=== PATIENT | female | born 1955 | race Caucasian/White ===

== ENCOUNTER → 2022-10-17 08:19 | Outpatient (BNVA) | payer MEDICARE, SELFPAY | PROVIDERS: PCP Internal Medicine; Visit Provider Nurse Practitioner Family | DX: H53.9 Unspecified visual disturbance (principal); H55.00 Unspecified nystagmus; R51.9 Headache, unspecified | CPT/HCPCS: 99202 ==

== ENCOUNTER 2022-11-14 10:08 | Outpatient (REF) | payer MEDICARE, SELFPAY ==
--- NOTE | ~2022-11-14 | MR_ITS ---
EXAMINATION: MR ANGIOGRAPHY BRAIN WITHOUT CONTRAST; MR ANGIOGRAM NECK WITHOUT AND WITH CONTRAST. CLINICAL INFORMATION: 67-year-old with unspecified nystagmus, with self-reported decline in vision in the mornings. Pressure in head, hypertension, HLD. COMPARISON: None available. MRA BRAIN TECHNIQUE: 3-D eiip-pa-cegjgo MR angiography of the intracranial circulation was done with multiplanar reformatted reconstructions without IV contrast. FINDINGS: Anterior Circulation: Review of both the source images and the MIPS demonstrate flow-related enhancement within the intracranial ICAs bilaterally without significant focal stenosis or segmental occlusion. There are curvilinear foci of signal loss in the ophthalmic and cavernous segments of both ICAs, likely reflecting intravoxel dephasing, which is an artifact. The A1 and A2 segments are patent and normal in caliber. The M1 segments are patent and normal in caliber with a normal appearance to the MCA bifurcations and M2 branches. The anterior communicating artery is diminutive but otherwise unremarkable. The posterior communicating arteries are not clearly visualized. Posterior Circulation: The visualized intradural vertebral arteries are patent and normal in caliber with the left being dominant. The posterior inferior cerebellar arteries are visualized bilaterally. There is a short fenestration of the proximal basilar artery at the vertebrobasilar junction, which is an anatomic variant. Otherwise, the basilar artery is patent and normal in caliber with smooth contours. The superior cerebellar and posterior cerebral arteries are patent and normal in caliber. No aneurysms or high-flow vascular malformations are identified. MRI NECK TECHNIQUE: 2-D cqxd-yy-xgplyd MR angiography was performed followed by bolus enhanced 3-D bnsx-qz-naokge MR angiography utilizing the intravenous administration of 10 mL of Gadavist via power injector. FINDINGS: There is antegrade flow in both vertebral arteries, with the left being dominant. There is limited visualization of the thoracic aortic arch, with a three-vessel arch configuration noted, with normal caliber to the brachiocephalic vessels. The visualized subclavian arteries are normal in caliber. The vertebral artery origins are patent and normal in caliber bilaterally. Note that the vertebral arteries throughout the course of the neck are not optimally evaluated due to artifacts with some segments not being well visualized. Cannot exclude atherosclerotic disease and stenoses on the left at the V3 segment and on the right at the V1, V2 and V3 segments. If clinically warranted, this can be better evaluated with CT angiography. The common carotid arteries are smoothly contoured and normal in caliber bilaterally, with a normal appearance to the carotid bifurcations. The cervical left internal carotid artery shows moderate short-segment luminal narrowing at the mid cervical ICA. There is focal luminal irregularity in the mid cervical right ICA, which has a somewhat beaded appearance without significant focal stenosis, raising suspicion for possible fibrovascular dysplasia given its location and appearance. Otherwise the remainder of the right cervical ICA is smoothly contoured and normal in caliber. Both ECAs are patent. MR/MR angio neck wo/w con IMPRESSION: 1. No evidence for significant intracranial arterial stenosis or segmental occlusion. 2. No intracranial aneurysms or high flow vascular malformations. 3. Question of atherosclerotic disease and stenoses involving the V3 segments of the vertebral arteries bilaterally. If clinically warranted, this can be better evaluated with CT angiography. Cannot exclude fibromuscular dysplasia on the right. 4. Moderate short segment stenosis of the mid cervical left ICA. 5. Focal luminal irregularity in the mid cervical right ICA without significant focal stenosis, raising suspicion for possible fibrovascular dysplasia given its location in appearance. 6. Limited visualization of the thoracic aortic arch. 7. CT angiography recommended for further assessment.
--- NOTE | ~2022-11-14 | MR_ITS ---
EXAMINATION: MR ANGIOGRAPHY BRAIN WITHOUT CONTRAST; MR ANGIOGRAM NECK WITHOUT AND WITH CONTRAST. CLINICAL INFORMATION: 67-year-old with unspecified nystagmus, with self-reported decline in vision in the mornings. Pressure in head, hypertension, HLD. COMPARISON: None available. MRA BRAIN TECHNIQUE: 3-D bsky-zp-jvwrmu MR angiography of the intracranial circulation was done with multiplanar reformatted reconstructions without IV contrast. FINDINGS: Anterior Circulation: Review of both the source images and the MIPS demonstrate flow-related enhancement within the intracranial ICAs bilaterally without significant focal stenosis or segmental occlusion. There are curvilinear foci of signal loss in the ophthalmic and cavernous segments of both ICAs, likely reflecting intravoxel dephasing, which is an artifact. The A1 and A2 segments are patent and normal in caliber. The M1 segments are patent and normal in caliber with a normal appearance to the MCA bifurcations and M2 branches. The anterior communicating artery is diminutive but otherwise unremarkable. The posterior communicating arteries are not clearly visualized. Posterior Circulation: The visualized intradural vertebral arteries are patent and normal in caliber with the left being dominant. The posterior inferior cerebellar arteries are visualized bilaterally. There is a short fenestration of the proximal basilar artery at the vertebrobasilar junction, which is an anatomic variant. Otherwise, the basilar artery is patent and normal in caliber with smooth contours. The superior cerebellar and posterior cerebral arteries are patent and normal in caliber. No aneurysms or high-flow vascular malformations are identified. MRI NECK TECHNIQUE: 2-D arwx-ak-lhqmfu MR angiography was performed followed by bolus enhanced 3-D trkz-bz-sukgsy MR angiography utilizing the intravenous administration of 10 mL of Gadavist via power injector. FINDINGS: There is antegrade flow in both vertebral arteries, with the left being dominant. There is limited visualization of the thoracic aortic arch, with a three-vessel arch configuration noted, with normal caliber to the brachiocephalic vessels. The visualized subclavian arteries are normal in caliber. The vertebral artery origins are patent and normal in caliber bilaterally. Note that the vertebral arteries throughout the course of the neck are not optimally evaluated due to artifacts with some segments not being well visualized. Cannot exclude atherosclerotic disease and stenoses on the left at the V3 segment and on the right at the V1, V2 and V3 segments. If clinically warranted, this can be better evaluated with CT angiography. The common carotid arteries are smoothly contoured and normal in caliber bilaterally, with a normal appearance to the carotid bifurcations. The cervical left internal carotid artery shows moderate short-segment luminal narrowing at the mid cervical ICA. There is focal luminal irregularity in the mid cervical right ICA, which has a somewhat beaded appearance without significant focal stenosis, raising suspicion for possible fibrovascular dysplasia given its location and appearance. Otherwise the remainder of the right cervical ICA is smoothly contoured and normal in caliber. Both ECAs are patent. MR/MR angio head wo con IMPRESSION: 1. No evidence for significant intracranial arterial stenosis or segmental occlusion. 2. No intracranial aneurysms or high flow vascular malformations. 3. Question of atherosclerotic disease and stenoses involving the V3 segments of the vertebral arteries bilaterally. If clinically warranted, this can be better evaluated with CT angiography. Cannot exclude fibromuscular dysplasia on the right. 4. Moderate short segment stenosis of the mid cervical left ICA. 5. Focal luminal irregularity in the mid cervical right ICA without significant focal stenosis, raising suspicion for possible fibrovascular dysplasia given its location in appearance. 6. Limited visualization of the thoracic aortic arch. 7. CT angiography recommended for further assessment.
== END 2022-11-14 10:09 | disposition home or self-care (01) ==
LOC: HO.MRI 10:08
PROVIDERS: PCP Internal Medicine; Visit Provider Nurse Practitioner Family
DX: R51.9 Headache, unspecified (principal); H55.00 Unspecified nystagmus; H53.9 Unspecified visual disturbance; E78.5 Hyperlipidemia, unspecified; I10 Essential (primary) hypertension
CPT/HCPCS: 70544; 70549; A9585

== ENCOUNTER 2022-12-20 09:52 | Outpatient (REF) | payer MEDICARE, SELFPAY ==
[2022-12-20 10:56] LABS: Anion Gap 9 (12-20); Blood Urea Nitrogen 14 mg/dL (9-16); Calcium 9.8 mg/dL (8.4-10.2); Carbon Dioxide 32 mmol/L (22-29); Chloride 106 mmol/L (96-108); Estimated Glomerular Filt Rate > 60; Glucose Random 95 mg/dL (60-115); Sodium 143 mmol/L (135-145)
== END 2022-12-20 09:53 | disposition home or self-care (01) ==
LOC: HO.LAB 09:52
PROVIDERS: PCP Internal Medicine; Visit Provider Nurse Practitioner Family
DX: I10 Essential (primary) hypertension (principal)
CPT/HCPCS: 36415; 80048

== ENCOUNTER 2023-01-09 07:50 | Outpatient (REF) | payer MEDICARE, SELFPAY ==
--- NOTE | ~2023-01-09 | CT_ITS ---
EXAMINATION: CT angio head neck CLINICAL INFORMATION: Unspecified visual disturbance. Nystagmus. Self reported decline in vision in the morning. COMPARISON: None. TECHNIQUE: Public [employer] Worker images were obtained. A CT angiogram of the head and neck was performed in the arterial phase after the intravenous administration of 70 mL Omnipaque 350. Delayed postcontrast images of the head were also obtained. 3D images were processed on an independent workstation under concurrent supervision. Arterial stenoses are measured in accordance with NASCET criteria or similar method if applicable. This CT examination was performed using dose optimization techniques as appropriate, including one or more of the following: Automated exposure control, iterative reconstruction, and adjustment of technique factors (mA and/or kVp) according to patient size (this includes techniques or standardized protocols for targeted exams where dose is matched to indication/reason for exam). Fleischner Society criteria for the followup of incidental pulmonary nodules was implemented if appropriate. Total exam dose-length product 2368 mGy-cm FINDINGS: Head: Postcontrast images reveal no abnormal intracranial mass or enhancement. There is no intracranial mass effect or midline shift. Lateral and third ventricles are normal. No hydrocephalus. Finch-white matter differentiation is preserved and there is no evidence of acute territorial infarct. The calvarium and skull base are intact. Mastoid air cells and middle ear cavities are well aerated. No active paranasal sinus disease. CT angiogram neck: The aortic arch apex is normal. Origins of the major aortic branches are widely patent. Common carotid arteries and carotid bifurcations are normal. There is a beaded irregular contour involving an short segment of the right extracranial internal carotid artery best visualized on MIP image 56 of 102 series 10. Otherwise no focal stenosis of the vessel. The left extracranial internal carotid artery is normal. Cervical segments of the vertebral arteries are normal. CT angiogram head: Intracranial internal carotid arteries are normal. The intradural vertebral artery segments and basilar artery are normal. Anterior, middle, and posterior cerebral artery complexes are normal. No intracranial large vessel occlusion. No identifiable aneurysm or high flow vascular lesion. Other: Soft tissues of the neck including the thyroid gland are normal. No pathologically enlarged cervical lymph nodes. No mediastinal or axillary adenopathy is visualized within the cyrje-wb-yqoi of this examination. Lung apices are clear. No acute osseous finding. CT/CT angio head neck IMPRESSION: There is a beaded irregular contour involving a short segment of the right extracranial internal carotid artery suggesting the possibility of fibromuscular dysplasia. Otherwise normal CT angiogram of the head and neck. No intracranial large vessel occlusion. No evidence of acute territorial infarct or hemorrhage. No abnormal intracranial mass or enhancement.
[2023-01-09] MEDS: iohexoL 350 MG/ML 100 ML INFUS..BTL 70 ML IV (09:00)
== END 2023-01-09 07:51 | disposition home or self-care (01) ==
LOC: HO.CT 07:50
PROVIDERS: PCP Internal Medicine; Visit Provider Nurse Practitioner Family
DX: H53.9 Unspecified visual disturbance (principal); I10 Essential (primary) hypertension; E78.5 Hyperlipidemia, unspecified
CPT/HCPCS: 70496; 70498; Q9967

== ENCOUNTER 2023-04-03 14:06 | Outpatient (AMB) | payer MEDICARE, SELFPAY ==
--- NOTE | 2023-04-03 14:23 | A.OFFVIS_ITS ---
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 She had CT for vision changes. Pt states that when she wakes up she has blurry vision for multiple hours until the afternoon when her vision starts to clear up. This has been happening fr a few years now. Accompanied by: Self / Same As Patient Allergies meloxicam Allergy (Mild, Verified 04/03/23 14:30) Swelling codeine Allergy (Unknown, Verified 04/03/23 14:30) Unknown acetaminophen [From Percocet] Adverse Reaction (Unknown, Verified 04/03/23 14:3 0) Nausea and Vomiting oxycodone [From Percocet] Adverse Reaction (Unknown, Verified 04/03/23 14:30) Nausea and Vomiting HPI [employer]ELOPER/Sleep/Neuro Ref for FMD c/p CTA Head/Neck HPI Details Complex 68-year-old female presents for evaluation regarding carotid disease. She originally had a significant workup due to visual changes. She reports that during the daytime she has difficulty seeing and dry eyes using drops on a fairly frequent basis with no significant relief. Has no issues during nights and warnings. She has had a significant workup inclusive of CT angio of the carotids. She now presents to us for vascular evaluation as they had concerning CT scan findings. Of note she has bilateral visual changes. In addition upon discussion with her she does have occasional headaches but she has a daughter and granddaughter both with migraine headache issues. She now presents to us for vascular evaluation with CT angiogram. [facility] Surgical History History of knee replacement Hx of cataract surgery Hx of tonsillectomy Hx of tubal ligation Family History Mother Hypertension Myocardial infarction CHF (congestive heart failure) Father Colon cancer Hypertension Paternal Grandfather Lung cancer Sister Hypertension Daughter Hypertension Son Sleep apnea Social History Alcohol intake: current Alcohol intake frequency: a few times a month Alcohol type: wine Patient Tobacco Use Status: Former Tobacco user Quit Date: Over 40 years ago. Review of Systems Const All systems reviewed & are unremarkable except as noted in HPI and below Reports no additional complaints ENT Reports Normal hearing present Card Denies chest pain, Denies chest pain at rest, Denies chest pain with activity and Denies pedal edema Resp Denies cough GI Denies abdominal pain Musc Denies abnormal gait, Denies muscle cramps and Denies radiating pain into limb Skin/Breast Denies skin ulcer and Denies wounds Neuro Reports Normal hearing present and Denies abnormal gait Psych Reports no additional complaints Physical Exam Vital Signs: BMI result Body Mass Index 25.3 Const General: cooperative, healthy appearing and comfortable Orientation/consciousness: oriented to person, oriented to place and oriented to time HEENT Head: Yes normal to inspection Neck Neck: Yes normal visual inspection Carotids: no bruits Chest Chest palpation & inspection: normal inspection of the chest Resp Effort & Inspection: normal respiratory effort and able to speak in complete sentences Auscultation: clear to auscultation bilaterally, no crackles, no rales, no rhonchi and no wheezes Cardio Rate: regular rate Rhythm: regular rhythm Heart sounds: S1 normal heart sound present and S2 normal heart sound present Bruits: no carotid bruits Peripheral pulses: Peripheral pulses 2+ throughout GI Inspection: Yes normal to inspection Skin Wounds: no wounds Hair: normal Neuro General: oriented to person, oriented to place and oriented to time Cranial nerves: Yes CN's II-XII intact bilaterally and Yes Normal hearing present Cognition (Neuro): normal cognition Motor exam (neuro): 5/5 motor strength present throughout Extrem Other: venous exam: No significant superficial varicosities or spider telangiectasias, minimal edema General: No clubbing, No cyanosis and No edema Psych Appearance: grossly normal Mental Status: mental status grossly normal Speech and movement: Normal speech and movement present Results Reviewed Results Reviewed: CT angiogram of official results are concerning for questionable focal right carotid FMD. Assessment & Plan Assessment & Plan (1) Vision changes: Code(s): H53.9 - Unspecified visual disturbance Plan: In short patient has bilateral visual changes. I did personally review the CT scan findings and also rereviewed the imaging with Radiology. I do believe that this is a significant over read. It has mild stenotic disease and there is no evidence of FMD. This is not the source of her visual issues. These findings were discussed with the patient. Once again may require further neurologic workup in terms of headaches and possible migraine auras, although she does deny any significant migraines. From our perspective she has no significant vascular issues. She will follow up with us on an as-needed basis. I do wish the patient best of luck. Thank you for allowing us to participate in her care Coding Level of Care Code New Pt Level 4 (36628) Diagnoses Vision changes H53.9
[2023-04-03 14:24] VITALS: BMI 25.3
== END 2023-04-03 15:20 | disposition home or self-care (01) ==
PROVIDERS: PCP Internal Medicine; Visit Provider Surgery Vascular Surgery
DX: H53.9 Unspecified visual disturbance (principal)
CPT/HCPCS: 99203

== ENCOUNTER → 2023-04-03 14:06 | Outpatient (BNVA) | payer MEDICARE, SELFPAY | PROVIDERS: PCP Internal Medicine; Visit Provider Surgery Vascular Surgery | DX: H53.9 Unspecified visual disturbance (principal) | CPT/HCPCS: 99202 ==

== ENCOUNTER 2023-09-01 11:51 | Emergency (ER) | payer MEDICARE, SELFPAY ==
--- NOTE | ~2023-09-01 | CT_ITS ---
CT HEAD WITHOUT IV CONTRAST CT CERVICAL SPINE WITHOUT IV CONTRAST INDICATION: Fall with head strike. COMPARISON: CTA head and neck 01/09/2023. TECHNIQUE: Multidetector CT acquisitions of the head and cervical spine were obtained without IV contrast. Multiplanar reformats were acquired and utilized for image interpretation. This CT examination was performed using dose optimization techniques as appropriate, variously including the following: *Automated exposure control *Adjustment of mA and/or kV according to patient size (this includes techniques or standardized protocols for targeted exams where dose is matched to indication/reason for exam; i.e. extremities or head) *Use of iterative reconstruction technique FINDINGS: HEAD: There is no intracranial hemorrhage, hydrocephalus, extra-axial surface collection, midline shift, or other herniation pattern. Finch to white matter differentiation is diffusely maintained without evidence of an evolved acute territorial infarct. The basilar cisterns are preserved. No significant soft tissue abnormality. No acute osseous abnormality. The paranasal sinuses and the mastoid air cells are well aerated. CERVICAL SPINE: Degenerative anterior subluxation of C4 on C5 in the setting of advanced facet arthropathy on the left side at this level. Severe degenerative disc disease at C5-C6. There are no acute fractures and there are no acute subluxations. Craniocervical junction is intact. Hypertrophic degenerative changes involving the atlantodental interval. CT/CT cervical spine wo IV con IMPRESSION: - No acute intracranial abnormality. - No acute osseous abnormality within the cervical spine. There is multilevel cervical spondylosis.
--- NOTE | ~2023-09-01 | CT_ITS ---
CT HEAD WITHOUT IV CONTRAST CT CERVICAL SPINE WITHOUT IV CONTRAST INDICATION: Fall with head strike. COMPARISON: CTA head and neck 01/09/2023. TECHNIQUE: Multidetector CT acquisitions of the head and cervical spine were obtained without IV contrast. Multiplanar reformats were acquired and utilized for image interpretation. This CT examination was performed using dose optimization techniques as appropriate, variously including the following: *Automated exposure control *Adjustment of mA and/or kV according to patient size (this includes techniques or standardized protocols for targeted exams where dose is matched to indication/reason for exam; i.e. extremities or head) *Use of iterative reconstruction technique FINDINGS: HEAD: There is no intracranial hemorrhage, hydrocephalus, extra-axial surface collection, midline shift, or other herniation pattern. Finch to white matter differentiation is diffusely maintained without evidence of an evolved acute territorial infarct. The basilar cisterns are preserved. No significant soft tissue abnormality. No acute osseous abnormality. The paranasal sinuses and the mastoid air cells are well aerated. CERVICAL SPINE: Degenerative anterior subluxation of C4 on C5 in the setting of advanced facet arthropathy on the left side at this level. Severe degenerative disc disease at C5-C6. There are no acute fractures and there are no acute subluxations. Craniocervical junction is intact. Hypertrophic degenerative changes involving the atlantodental interval. CT/CT head/brain wo IV con IMPRESSION: - No acute intracranial abnormality. - No acute osseous abnormality within the cervical spine. There is multilevel cervical spondylosis.
[2023-09-01 12:04] VITALS: BP 161/77; PULSE 91; RESP 19; TEMP 36.6; O2SAT 98; BMI 25.7
--- NOTE | 2023-09-01 12:10 | ED.GENADULT ---
HPI - General Adult General Chief complaint: Dizziness Stated complaint: Fall yest due to dizziness Time Seen by Provider: 09/01/23 17:57 Source: patient Mode of arrival: ambulatory Limitations: no limitations History of Present Illness HPI narrative: Patient is a 68 year old assigned female at with a history of HTN presenting to the emergency department today with a headache after a fall. Patient states that yesterday while she was in the shower, she put her leg up to shave, got dizzy, and fell backwards, striking her head. Patient denies any loss of consciousness. Patient denies any current dizziness, lightheadedness, abdominal pain, nausea, vomiting, fever, chills, blurry vision, double vision, loss of vision, chest pain, difficulty breathing, shortness of breath, back pain, night sweats, pain with urination, increased urinary frequency, increased urinary urgency, blood in her urine or stool, syncope or a near syncopal episode, bowel incontinence, bladder incontinence, bowel retention, bladder retention, or any other complaints at this time. Onset (ago): day(s) (1) Severity: mild Severity scale (1-10): 2 Relieving factors: none Exacerbating factors: none Associated symptoms: denies other symptoms Treatments prior to arrival: none Related Data Home Medications Medication Instructions Recorded Confirmed calcium carbonate 500 mg-vitamin 1 tab PO DAILY 10/16/22 10/17/22 D3 10 mcg (400 unit) tablet (Calcium 500 + D) fluticasone propionate 50 spray intranasal 10/16/22 10/17/22 mcg/actuation nasal spray,suspension hydrochlorothiazide 25 mg tablet 25 mg PO DAILY 10/16/22 10/17/22 lisinopril 10 mg tablet 10 mg PO DAILY 10/16/22 10/17/22 multivitamin 1 tab PO DAILY 10/16/22 10/17/22 antiarthritic combination no.2 900 1,500 mg PO BID 10/17/22 10/17/22 mg tablet (glucosamine-chondroitin) loratadine 10 mg tablet 10 mg PO DAILY 10/17/22 10/17/22 pravastatin 40 mg tablet 40 mg PO BEDTIME 12/06/22 Allergies Allergy/AdvReac Type Severity Reaction Status Date / Time meloxicam Allergy Mild Swelling Verified 09/01/23 12:04 codeine Allergy Unknown Unknown Verified 09/01/23 12:04 acetaminophen [From Percocet] AdvReac Unknown Nausea and Verified 09/01/23 12:04 Vomiting oxycodone [From Percocet] AdvReac Unknown Nausea and Verified 09/01/23 12:04 Vomiting Review of Systems Constitutional: Constitutional: Reports no additional constitutional complaints, Denies chills, Denies fever(s), Reports headache(s) and Denies night sweats Eyes: Eyes: Reports no additional eye complaints, Denies blurry vision, Denies change in vision, Denies diplopia, Denies eye discharge, Denies loss of vision and Denies eye pain ENT: Reports dizziness (now resolved) and Reports headache(s) Cardiovascular: Cardiovascular: Reports no additional cardiovascular complaints, Denies chest pain, Denies lightheadedness, Denies Loss of Consciousness and Denies dyspnea Respiratory: Respiratory: Reports no additional respiratory complaints and Denies dyspnea Gastrointestinal: Gastrointestinal: Reports no additional gastrointestinal complaints, Denies abdominal pain, Denies melena, Denies hematochezia, Denies change in bowel habits and Denies change in stool character Genitourinary: Genitourinary: Denies hematuria, Denies urinary frequency, Denies dysuria, Denies urinary incontinence, Denies urinary hesitancy and Denies urinary urgency Musculoskeletal: Musculoskeletal: Reports no additional musculoskeletal complaints, Denies numbness and Denies tingling Neurologic: Reports dizziness (now resolved), Reports headache(s), Denies loss of vision, Denies numbness and Denies tingling Psychiatric: Psychiatric: Reports no additional psychiatric complaints Endocrine: Endocrine: Reports no additional endocrine complaints Hematologic/Lymphatic: Hematologic/Lymphatic: Reports no additional hematologic/lymphatic complaints Allergic/Immunologic: Allergic/Immunologic: Reports no additional allergic/immunologic complaints [facility] Past Medical History Attestation statement: The following information was validated with the patient. Source: old records reviewed and nursing notes reviewed Surgical History Hx of tubal ligation History of knee replacement Hx of tonsillectomy Hx of cataract surgery Family History Family History Mother Hypertension Myocardial infarction CHF (congestive heart failure) Father Colon cancer Hypertension Paternal Grandfather Lung cancer Sister Hypertension Daughter Hypertension Son Sleep apnea Social History Social History Alcohol intake: current Alcohol intake frequency: a few times a month Alcohol type: wine Patient Tobacco Use Status: Former Tobacco user Quit Date: Over 40 years ago. Advance Directives: Yes Advance Directives on File: No Physical Exam ED Vital Signs: Vital Signs - 24 hr 09/01/23 12:04 09/01/23 17:53 Temperature 98 F Pulse Rate 91 85 Respiratory Rate 19 16 Blood Pressure 161/77 H 153/86 H Pulse Oximetry 98 98 Oxygen Delivery Method Room Air Room Air BMI result Body Mass Index 25.7 Const General: cooperative, no acute distress, alert and awake Nutritional Appearance: well nourished Orientation/consciousness: patient oriented x3 Limitations: no limitations HENMT Head: Yes normal to inspection Ears: hearing grossly normal bilaterally and external ears normal General nose exam: Normal external nose present, no nasal discharge noted and no epistaxis Face and sinus: Yes normal facial exam, No abrasion and No laceration Mouth: Normal oral and palatal mucosa present, no drooling and no muffled voice Eyes General: appearance normal, both eyes and all related structures Periorbital: periorbital findings normal Eyelids: Yes eyelids normal Conjunctivae: conjunctivae normal Pupils: Equal, round and reactive pupils present EOM: EOMs intact bilaterally Neck Neck: Yes normal visual inspection, Yes full ROM and Yes no lymphadenopathy Chest Chest palpation & inspection: normal inspection of the chest Resp Effort & Inspection: normal respiratory effort and able to speak in complete sentences GI Inspection: Yes normal to inspection Neuro General: patient oriented x3 and moves all extremities Cranial nerves: Yes Equal, round and reactive pupils present Cognition (Neuro): normal cognition Motor exam (neuro): 5/5 motor strength present throughout Sensory Exam: Normal double simultaneous stimulation for sensation Coordination: slosmy-of-sgsa test normal Extrem General: Yes normal to inspection, Yes full ROM and Yes capillary refill normal Psych Appearance: grossly normal Mental Status: mental status grossly normal Affect: normal affect Attitude: cooperative Thought process: Normal thought process present Thought content: Normal thought content present Insight: Good insight present (Psych) Course Course Course Narrative: RME performed by Iliana Taylor PA-C. Patient is a 68 year old assigned female at presenting to the emergency department with dizziness in the shower resulting in a fall and a head strike. Detailed physical exam and review of systems are deferred to the lab analyst. Labs, imaging, and swabs ordered. Patient placed back in the waiting room pending room availability and results. Medical Decision Making Medical Decision Making [facility] Narrative: Patient is a 68 year old assigned female at with a history of HTN presenting to the emergency department today with a headache after an episode of dizziness and a fall. Patient's physical exam was unremarkable. Patient's blood work was unremarkable. Patient's urine showed no acute process. Patient's EKG was unremarkable. Patient's head and c-spine CTs showed no acute process. I explained my physical exam findings as well as all test results to the patient. I answered all questions asked by the patient. I stressed the importance of the patient taking her medication as prescribed. I stressed the importance of the patient following up with her primary care provider. I stressed the importance of the patient returning to the emergency department immediately if her symptoms were to worsen or if she were to develop any dizziness, shortness of breath, difficulty breathing, chest pain, blurry vision, loss of vision, nausea, vomiting, abdominal pain, fever, chills, back pain, or any other complaints. Patient verbalized agreement and understanding with this treatment plan and discharge. Differential Diagnosis Differential Diagnoses: The differential diagnosis associated with the presentation includes Dizziness Fall Head strike Admission/Observation Consideration of admission/observation: Escalation of care including admission/observation considered Patient would have been admitted to the hospital had her work up had any findings where hospital admission was appropriate and her clinical presentation warranted hospital admission. Lab Data [facility] Lab Attestation statement: I reviewed the patient's lab results. My interpretation of these results are in the [facility] Rationale portion of this note. 09/01/23 14:17 09/01/23 14:17 Labs: Lab Results 09/01/23 Range/Units 14:17 WBC 7.8 (4.8-10.8) X10*3/uL RBC 4.49 (4.20-5.50) X10*6/uL Hgb 14.1 (12.0-16.0) g/dl Hct 41.5 (37.0-47.0) % MCV 92.4 (80.0-98.0) fL MCH 31.4 (27.0-33.0) pg MCHC 34.0 (31.0-35.0) g/dl RDW 11.9 (11.0-16.0) % Plt Count TNP MPV 9.7 (9.4-12.3) fL Immature Gran % (Auto) 0.3 (0.0-0.4) % Neut % (Auto) 75.1 H (45-73) % Lymph % (Auto) 17.6 L (20-40) % [place] % (Auto) 5.9 (2-11) % Eos % (Auto) 0.6 (0-4) % Baso % (Auto) 0.5 (0-2) % Lymph # (Auto) 1.4 (1.2-4.9) X10*3/uL [place] # (Auto) 0.5 (0.1-1.2) X10*3/uL Eos # (Auto) 0.1 (0.0-0.4) X10*3/uL Baso # (Auto) 0.0 (0.0-0.2) X10*3/uL Abs Immat Gran (auto) 0.02 (0.00-0.03) X10*3/uL Absolute Neuts (auto) 5.9 (2.0-8.3) x10*3/uL Absolute Nucleated RBC 0.000 (0.0-0.012) X10*3/uL Nucleated RBC % (auto) 0.0 (0.0-0.2) /100WBC Smear Tech's Comments VERIFIED Sodium 146 H (135-145) mmol/L Potassium 3.9 (3.3-5.1) mmol/L Chloride 103 (96-108) mmol/L Carbon Dioxide 31 H (22-29) mmol/L Anion Gap 16 (12-20) BUN 10 (9-16) mg/dL Creatinine 0.84 (0.5-1.4) mg/dL Estim Creat Clear Calc 65.6 Estimated GFR > 60 Random Glucose 100 (60-115) mg/dL Calcium 10.4 H D (8.4-10.2) mg/dL Magnesium 2.2 (1.6-2.6) mg/dL Total Bilirubin 0.3 (0.0-1.0) mg/dL AST 20 (5-31) U/L ALT 19 (0-31) U/L Alkaline Phosphatase 97 (39-117) U/L Troponin I High Sens < 2.7 (<3.5-17.0) ng/L Total Protein 8.4 H (6.5-8.0) g/dL Albumin 4.5 (3.5-5.0) g/dL Urine Color Yellow Urine Appearance Clear Urine pH 7.0 (5.0-9.0) Ur Specific [place] 1.010 (1.005-1.025) Urine Protein Negative (Neg-Trace) mg/dL Urine Glucose (UA) Negative (Negative) mg/dL Urine Ketones Negative (Negative) mg/dL Urine Blood Negative (Negative) Urine Nitrite Negative (Negative) Ur Leukocyte Esterase Negative (Negative) COVID-19 (CEZAR) Negative (Negative) COVID-19 Clin Com See Note Influenza Type A (DANIEL) Negative (Negative) Influenza Type B (DANIEL) Negative (Negative) Influenza A & B Note See Note Independent Interpretation I performed an independent interpretation of an: EKG and CT Scan Interpretation: My interpretation is in agreement with the radiologist's impression of these imaging studies. CT HEAD WITHOUT IV CONTRAST CT CERVICAL SPINE WITHOUT IV CONTRAST INDICATION: Fall with head strike. COMPARISON: CTA head and neck 01/09/2023. TECHNIQUE: Multidetector CT acquisitions of the head and cervical spine were obtained without IV contrast. Multiplanar reformats were acquired and utilized for image interpretation. This CT examination was performed using dose optimization techniques as appropriate, variously including the following: *Automated exposure control *Adjustment of mA and/or kV according to patient size (this includes techniques or standardized protocols for targeted exams where dose is matched to indication/reason for exam; i.e. extremities or head) *Use of iterative reconstruction technique FINDINGS: HEAD: There is no intracranial hemorrhage, hydrocephalus, extra-axial surface collection, midline shift, or other herniation pattern. Finch to white matter differentiation is diffusely maintained without evidence of an evolved acute territorial infarct. The basilar cisterns are preserved. No significant soft tissue abnormality. No acute osseous abnormality. The paranasal sinuses and the mastoid air cells are well aerated. CERVICAL SPINE: Degenerative anterior subluxation of C4 on C5 in the setting of advanced facet arthropathy on the left side at this level. Severe degenerative disc disease at C5-C6. There are no acute fractures and there are no acute subluxations. Craniocervical junction is intact. Hypertrophic degenerative changes involving the atlantodental interval. CT/CT head/brain wo IV con IMPRESSION: - No acute intracranial abnormality. - No acute osseous abnormality within the cervical spine. There is multilevel cervical spondylosis. Dictated By: Elbert Brooks MD Signed By: Electronically signed by Elbert Brooks MD 09/01/23 1354 Vent. Rate: 079 BPM Atrial Rate: 079 BPM P-R Int: 162 ms QRS Dur: 092 ms QT Int: 366 ms P-R-T Axes: 068 048 042 degrees QTc Int: 419 ms Normal sinus rhythm Possible Left atrial enlargement Borderline ECG No previous ECGs available Electronically Signed By:Gavino Hardy Dictated By: Gavino Hardy MD Signed By: Electronically signed by Gavino Hardy MD 09/01/23 1110 Radiology Impression Discussion of test interpretation with radiology: I have reviewed the radiologist's reading. Critical Care Time Critical Care Time Critical Care Time: Yes Total Critical Care Time: 45 Attestation: I spent 45 minutes of Critical Care Time with this patient. This does not include time spent on separately reported billable procedures. Discharge Plan Discharge Clinical Impression: Dizziness, Fall, History of hypertension Patient Disposition: Home, Self-Care Instructions: Dizziness (ED), Fall Prevention (ED) Additional Instructions: Follow up with your primary care provider. Return to the emergency department immediately if your symptoms worsen or if you develop any dizziness, shortness of breath, difficulty breathing, chest pain, blurry vision, loss of vision, nausea, vomiting, abdominal pain, fever, chills, back pain, or any other complaints. Prescriptions: No Action pravastatin 40 mg tablet 40 mg PO BEDTIME lisinopril 10 mg tablet 10 mg PO DAILY fluticasone propionate 50 mcg/actuation spray,suspension intranasal hydrochlorothiazide 25 mg tablet 25 mg PO DAILY multivitamin Tablet 1 tab PO DAILY calcium carbonate-vitamin D3 [Calcium 500 + D] 500 mg-10 mcg (400 unit) tablet 1 tab PO DAILY loratadine 10 mg tablet 10 mg PO DAILY glucosamine-chondroitin 900 mg tablet 1,500 mg PO BID Referrals: Jayshree Cheema MD [Primary Care Provider] - Interventions: ED Discharge Assessment Last Done: 09/01/23 18:02 Discharge Date/Time: 09/01/23 18:02 Print Language: Yi
--- NOTE | 2023-09-01 12:11 | ECG_ITS ---
Test Reason : SYNCOPE Blood Pressure : / mmHG Vent. Rate : 079 BPM Atrial Rate : 079 BPM P-R Int : 162 ms QRS Dur : 092 ms QT Int : 366 ms P-R-T Axes : 068 048 042 degrees QTc Int : 419 ms Normal sinus rhythm Possible Left atrial enlargement Borderline ECG No previous ECGs available Referred By: Iliana Taylor Electronically Signed By:Gavnio Hardy
[2023-09-01 14:27] LABS: Appearance Urine Clear; Color Urine Yellow; Glucose Urine UA Negative (Negative); Leukocyte Esterase Urine Negative (Negative); Nitrite Urine Negative (Negative); Urine Blood Negative (Negative); Urine Ketones Negative (Negative); Urine Protein Negative (Neg-Trace)
[2023-09-01 14:32] LABS: Basophils Percent Auto 0.5 % (0-2); Eosinophils Absolute Auto 0.1 X10*3/uL (0.0-0.4); Eosinophils Percent Auto 0.6 % (0-4); Hematocrit 41.5 % (37.0-47.0); Hemoglobin 14.1 g/dl (12.0-16.0); Imm Gran Abs Auto 0.02 X10*3/uL (0.00-0.03); Imm Gran Pct Auto 0.3 % (0.0-0.4); Lymphocytes Absolute Auto 1.4 X10*3/uL (1.2-4.9); Lymphocytes Percent Auto 17.6 % (20-40); MANUAL DIFF FLAG SCAN; Mean Corpuscular Hemoglobin 31.4 pg (27.0-33.0); Mean Corpuscular Volume 92.4 fL (80.0-98.0); Mean Platelet Volume 9.7 fL (9.4-12.3); Monocytes Absolute Auto 0.5 X10*3/uL (0.1-1.2); Monocytes Percent Auto 5.9 % (2-11); Neutrophils Absolute Auto 5.9 x10*3/uL (2.0-8.3); Neutrophils Percent Auto 75.1 % (45-73); PLT CLUMP 1; Red Blood Count 4.49 X10*6/uL (4.20-5.50); Red Cell Distribution Width 11.9 % (11.0-16.0); SCAN SMEAR FLAG 1
[2023-09-01 14:48] LABS: Alanine Aminotransferase 19 U/L (0-31); Albumin Level 4.5 g/dL (3.5-5.0); Alkaline Phosphatase 97 U/L (39-117); Anion Gap 16 (12-20); Aspartate Amino Transferase 20 U/L (5-31); Bilirubin Total 0.3 mg/dL (0.0-1.0); Blood Urea Nitrogen 10 mg/dL (9-16); COVID-19 Test Negative (Negative); Calcium 10.4 mg/dL (8.4-10.2); Carbon Dioxide 31 mmol/L (22-29); Chloride 103 mmol/L (96-108); Creatinine Clr Calc Pharmacy 65.6; Estimated Glomerular Filt Rate > 60; Glucose Random 100 mg/dL (60-115); IDNOW Serial# 152EDE1D; Magnesium 2.2 mg/dL (1.6-2.6); Potassium 3.9 mmol/L (3.3-5.1); Sodium 146 mmol/L (135-145); Total Protein 8.4 g/dL (6.5-8.0)
[2023-09-01 14:55] LABS: IDNOW Serial# 9DB6401D; Influenza A Negative (Negative); Influenza B2 Negative (Negative)
[2023-09-01 14:56] LABS: Troponin-I High Sensitivity < 2.7 ng/L (<3.5-17.0)
[2023-09-01 14:59] LABS: SLIDE REVIEW VERIFIED; White Blood Count 7.8 X10*3/uL (4.8-10.8)
[2023-09-01 17:53] VITALS: BP 153/86; PULSE 85; RESP 16; O2SAT 98
== END 2023-09-01 18:02 | disposition home or self-care (01) ==
LOC: HO.ED 18:01
PROVIDERS: Physician Assistant Medical; Emergency Provider Emergency Medicine; PCP Internal Medicine
DX: R42 Dizziness and giddiness (principal); Z91.81 History of falling; Z11.52 Encounter for screening for COVID-19; I10 Essential (primary) hypertension; E78.5 Hyperlipidemia, unspecified; Z79.02 Long term (current) use of antithrombotics/antiplatelets; Z79.899 Other long term (current) drug therapy
CPT/HCPCS: 70450; 72125; 80053; 81003; 83735; 84484; 85025; 87502; 87635; 93005; 99283; 99284

== ENCOUNTER → 2023-09-01 12:11 | Outpatient (BNV) | payer MEDICARE, SELFPAY | PROVIDERS: PCP Internal Medicine; Visit Provider Internal Medicine Cardiovascular Disease | DX: R55 Syncope and collapse (principal) | CPT/HCPCS: 93010 ==